=== PATIENT | male | born 1985 | race Caucasian/White ===

== ENCOUNTER 2018-08-27 14:45 | Emergency (ER) | payer OTHER ==
[~2018-08-27] VITALS: Ht 198.1 cm; Wt 113.2 kg
[2018-08-27 15:52] LABS: HEMATOCRIT 43.4 % (42.0-52.0); HEMOGLOBIN 14.5 g/dl (13.5-17.5); MEAN CORPUSCULAR HGB CONC 33.4 g/dl (32.0-36.5); MEAN CORPUSCULAR VOLUME 89.9 fl (80.0-96.0); PLATELET COUNT, AUTOMATED 208 10^3/uL (150-450); RED BLOOD COUNT 4.83 10^6/uL (4.30-6.10); WHITE BLOOD COUNT 6.9 10^3/uL (4.0-10.0)
[2018-08-27 16:26] LABS: ALBUMIN 4.3 GM/DL (3.2-5.2); ALT/SGPT 59 U/L (12-78); BILIRUBIN,TOTAL 1.6 MG/DL (0.2-1.0); BLOOD UREA NITROGEN 14 MG/DL (7-18); CALCIUM LEVEL 9.6 MG/DL (8.5-10.1); CARBON DIOXIDE LEVEL 25 MEQ/L (21-32); CHLORIDE LEVEL 106 MEQ/L (98-107); CREATININE FOR GFR 1.16 MG/DL (0.70-1.30); GLOMERULAR FILTRATION RATE > 60.0 (>60); GLUCOSE, FASTING 86 MG/DL (70-100); LIPASE 81 U/L (73-393); POTASSIUM SERUM 4.1 MEQ/L (3.5-5.1); SODIUM LEVEL 138 MEQ/L (136-145); TOTAL PROTEIN 7.2 GM/DL (6.4-8.2)
--- NOTE | 2018-08-27 18:03 | REP ---
CT chest without contrast: History: Left flank and chest wall pain. CT findings: Preliminary digital assistant scientist radiograph is unremarkable. There is no evidence of pleural effusion or pericardial effusion. No hilar or mediastinal mass or adenopathy is observed. Lung galdamez show mild linear fibrosis versus plate-like atelectasis in the lingula. No pulmonary nodule or mass lesion is seen. No infiltrate is noted. There is minimal linear fibrosis in the right lower lobe posteriorly. No tracheobronchial disease is appreciated. No rib or other fracture is seen. No bony destructive lesion is seen. Impression: No active disease. Electronically Signed by Evan Suggs MD 08/27/2018 07:06 P
--- NOTE | 2018-08-27 18:05 | REP ---
CT abdomen and pelvis without IV or oral contrast: History: Left flank pain. Findings: Preliminary digital fiber analyst radiograph is unremarkable. The liver and the spleen are normal in size and homogeneous in texture. Normal adrenal glands are seen bilaterally. No abnormality is noted in the pancreas or gallbladder. There is a 4 mm calcification in the lower pole of the left kidney. No hydronephrosis is seen. No other intrarenal calcification is seen. There is a tiny hyperdense cyst in the left kidney upper pole posteriorly. This measures 6 mm in diameter. Small and large intestinal bowel loops are normal in the abdomen and pelvis. A normal appendix is seen in the right mid abdomen. There are dystrophic calcifications in the prostate gland without enlargement. Urinary bladder is unremarkable. No abdominal wall defect is seen. No bony destructive lesion is appreciated. Impression: Intrarenal nephrolithiasis lower pole left kidney. Normal appendix. Dystrophic calcifications in the prostate. Otherwise normal CT abdomen and pelvis. Electronically Signed by Evan Suggs MD 08/27/2018 07:06 P
[2018-08-27 19:16] VITALS: BP 134/76
== END 2018-08-27 19:19 | disposition home or self-care (01) ==
LOC: M ED 14:45
DX: R10.9 Unspecified abdominal pain (principal); N42.0 Calculus of prostate; N20.0 Calculus of kidney; Z87.891 Personal history of nicotine dependence